=== PATIENT | female | born 1965 | race Caucasian/White ===

== ENCOUNTER → 2016-08-20 | Outpatient (CLI) | payer OTHER ==
--- NOTE | 2016-08-20 15:54 | MA ---
Screening Digital Mammogram With iCAD Analysis Clinical Indications: Routine screening. The patient has had left breast cancer treated with mastecto my. Technique: Standard cephalocaudal and mediolateral oblique projections of the right breast were obtai marcie. This examination was processed by the iCAD computer aided detection system. Comparison: July 2015, July 2014, July 2013. Breast density: Type C; Heterogeneously dense. Findings: CAD was reviewed. No masses, suspicious calcifications or other signs of malignancy are id entified. There has been no significant change in the appearance of the right breast. Impression: Negative mammogram. BI-RADS 1. Recommendation: Routine mammographic screening in one year as long as physical examination is negativ e. [facility] will send a result letter to the patient. Dense breast parenchyma diminishes mammographic sensitivity. Negative mammography should not preclude additional workup of a clinically suspicious finding. The patient's information is entered into a reminder system with a target due date for her next mammo gram.
== END ==
LOC: CIMAGING 10:15
DX: Z12.31 Encounter for screening mammogram for malignant neoplasm of breast (principal); Z85.3 Personal history of malignant neoplasm of breast; Z90.12 Acquired absence of left breast and nipple
CPT/HCPCS: G0202-52

== ENCOUNTER → 2016-09-03 | Outpatient (CLI) | payer OTHER ==
--- NOTE | 2016-09-03 20:36 | CT ---
CT Abdomen and Pelvis, Without Contrast History: Pelvic pain. Left lower quadrant pain. Technique: 5-mm helical images were obtained of the abdomen and pelvis from the level of the diaphra gms through the symphysis pubis. This was done without intravenous contrast, as requested. Oral con trast was administered. Multiplanar reformation was performed. Radiation dose reduction technique w as utilized. Findings: Abdomen: The lung bases are clear. No focal liver lesion. The gallbladder is unremarkable. The pa ncreas is unremarkable. The spleen is unremarkable. Both adrenal glands are normal in size and appe arance. There is a low-attenuation lesion in the superior pole of the left kidney, measuring 12 mm, which appears to have fat indicating an angiomyolipoma. No evidence for hydronephrosis in either kid kana. Pelvis: There is a 7.5-cm mass at the fundus of the uterus. No evidence for an adnexal mass. No si gnificant free fluid in the pelvis. No evidence for a bladder calculus. Impression: 1. A 7.5-cm probable leiomyoma in the fundus of the uterus. Correlation with ultrasound would be he lpful. 2. Constipation. 2. Probable benign angiomyolipoma superior pole left kidney. Results discussed with Dr. Latricia Cueto.
== END ==
LOC: FIMAGING 17:05
PROVIDERS: ATTEND Family Medicine
DX: R10.2 Pelvic and perineal pain (principal); R10.32 Left lower quadrant pain; K59.00 Constipation, unspecified

== ENCOUNTER → 2017-03-18 | Outpatient (CLI) | payer OTHER | LOC: BRMIMAGING 11:25 | PROVIDERS: ATTEND Family Medicine | DX: R04.1 Hemorrhage from throat (principal) ==

== ENCOUNTER → 2017-08-25 | Outpatient (CLI) | payer OTHER | LOC: CIMAGING 10:17 | PROVIDERS: ATTEND Obstetrics & Gynecology | DX: Z12.31 Encounter for screening mammogram for malignant neoplasm of breast (principal); Z85.3 Personal history of malignant neoplasm of breast; Z90.12 Acquired absence of left breast and nipple ==